=== PATIENT | female | born 1990 | race African-American/Black ===

== ENCOUNTER 2018-11-05 09:36 | Inpatient (IN) | payer OTHER ==
[2018-11-05] MEDS: ELECTROLYTE-148 SOLN 1,000 ML IV SCH (09:45)
[2018-11-05 10:43] VITALS: BMI 30.9
[2018-11-05] MEDS ORDERED: CITRIC ACID/SODIUM CITRATE 30 ML UNIT-DOSE CUP PO ONE (10:52)
--- NOTE | 2018-11-05 10:59 | HP ---
Past Medical History - Primary Care Physician PCP:: Scar Romeo - Admission Chief Complaint: 28yo P1 with at EGA 39w1d admitted for repeat C/S and BTL History of Present Illness: complicated by prior C/S Vaginal GBS (+) Rh negative History Source: Patient, Medical Record Limitations to Obtaining History: No Limitations - Past Medical History STIPPLER: No: Alzheimer's, CVA, Dementia, Migraine, Multiple Sclerosis, Peripheral Neuropathy, Parkinson's, Seizure, Syncope, TIA, Vertigo, Other Cardiovascular: No: AFIB, Aneurysm, Aortic Insufficiency, Aortic Stenosis, CAD, CHF, Deep Vein Thrombosis, HTN, Hyperlipdemia, [place], Mitral Insufficiency, Mitral Stenosis, Murmur, Pulmonary Hypertension, Other Pulmonary: No: Asthma, Bronchitis, Cancer, COPD, O2 Dependent, Pneumonia, Previously Intubated, Pulmonary Embolus, Pulmonary Fibrosis, Sleep Apnea, Other Gastrointestinal: No: Ascites, Cancer, Constipation, Crohn's Disease, Diverticulitis, Diverticulosis, Esophageal Varices, Gastritis, GERD, GI Bleed, Hemorrhoids, Hiatal Hernia, Inflamatory Bowel Disease, Irritable Bowel Disease, Pancreatitis, Peptic Ulcer Disease, Ulcerative Colitis, Other Hepatobiliary: No: Cirrhosis, Cholelithiasis, Cholecystitis, Choledocholithiasis , Hepatitis A, Hepatitis B, Hepatitis C, Other Renal/: No: Renal Failure, Renal Inusuff, BPH, Cancer, Hematuria, Hemodialysis , Neurogenic Bladder, Renal Calculi, UTI, Other ...: 3 ...Para: 1 ...Term: 1 ...: 0 ...Spon : 0 ...Induced : 1 ...Multiple Gestation: 0 ...LMP: 02/04/18 ... Weeks Gestation by Dates: 39.1 ...EDC by Dates: 11/11/18 ...EDC by Sono: 11/04/18 Heme/Onc: No: Anemia, B12 Deficiency, Bleeding Disorder, Cancer, Current Chemotherapy, Current Radiation Therapy, Hemochromatosis, Hypercoaguable State, Myeloproliferative Synd, Sickle Cell Disease, Sickle Cell Trait, Thrombocytopenia, Other Infectious Disease: No: AIDS, C-Diff, Herpes Zoster, HIV, MRSA, STD's, Tuberculosis, VREF, Other Psych: No: Addictions, Anxiety, Bipolar, Depression, Panic, Psychosis, Schizophrenia, Other Musculoskeletal: No: Bursitis, Chronic low back pain, Hemiparesis, Hemiplegia, Osteoarthritis, Paraplegia, Other Rheumatology: No: Fibromyalgia, Gout, Lupus, Rheumatoid Arthritis, Sarcoidosis, Vasculitis, Other ENT: No: Allergic Rhinitis, Sinusitis, Other Endocrine: No: Muldrow's Disease, Shantell's Disease, Diabetes Insipidus, Diabetes Mellitus, Hyperparathyroidism, Hyperthyroidism, Hypothyroidism, Osteopenia, SIADH, Other Dermatology: No: Basal Cell, Cellulitis, Eczema, Melanoma, Psoriasis, Squamous Cell, Other - Past Surgical History Past Surgical History: Yes: Hx Myomectomy: No Hx Transabdominal Cerclage: No - Smoking History Smoking history: Never smoked Have you smoked in the past 12 months: No - Alcohol/Substance Use Hx Alcohol Use: No History of Substance Use: reports: None - Social History Usual Living Arrangement: Yes: With Significant Other, With Child ADL: Independent History of Recent Travel: No Home Medications - Allergies Allergies/Adverse Reactions: Allergies Allergy/AdvReac Type Severity Reaction Status Date / Time No Known Allergies Allergy Verified 11/05/18 10:12 - Home Medications Home Medications: Ambulatory Orders Vitamins (Sjr) - 1 tab PO DAILY 11/05/18 Family Disease History - Family Disease History Family History: Denies Review of Systems - Review of Systems Constitutional: reports: No Symptoms Eyes: reports: No Symptoms HENT: reports: No Symptoms Neck: reports: No Symptoms Cardiovascular: reports: No Symptoms Respiratory: reports: No Symptoms Gastrointestinal: reports: No Symptoms Genitourinary: reports: No Symptoms Breasts: reports: No Symptoms Reported Musculoskeletal: reports: No Symptoms Integumentary: reports: No Symptoms Neurological: reports: No Symptoms Endocrine: reports: No Symptoms Hematology/Lymphatic: reports: No Symptoms Psychiatric: reports: No Symptoms Pain Intensity: 0 Physical Exam - Maternity Vital Signs: Vital Signs Temperature 98.5 F 11/05/18 10:33 Pulse Rate 88 11/05/18 10:33 Respiratory Rate 20 11/05/18 10:33 Blood Pressure 120/70 11/05/18 10:33 O2 Sat by Pulse Oximetry (%) Constitutional: Yes: Well Nourished, No Distress, Calm Eyes: Yes: WNL, Conjunctiva Clear, EOM Intact HENT: Yes: WNL, Atraumatic, Normocephalic Neck: Yes: WNL, Supple, Trachea Midline Cardiovascular: Yes: WNL, Regular Rate and Rhythm Lungs: Clear to auscultation, Normal air movement - Abdominal Exam/OB Fundal Height: 39 Number of Fetuses: Single Presentation: Vertex Contractions: Yes Regularity: Irritability Intensity: Unaware Monitor Mode: External Heart Rate (range): 140 Heart Rate Location: Midline Category: I Accelerations: Non-Uniform Decelerations: None - Vaginal Exam/OB Vaginal Bleediing: No Speculum Exam: No Presentation: Vertex/Position - Physical Exam Musculoskeletal: Yes: WNL Extremities: Yes: WNL Edema: Yes Edema: LLE: Trace, RLE: Trace Integumentary: Yes: WNL Deep Tendon Reflex Grade: Normal +2 ...Motor Strength: WNL Psychiatric: Yes: WNL, Alert, Oriented Hemorrhage Risk Assessment - Risk Factors Medium Risk Factors: Yes: Prior , uterine surgery,or multiple laparotomies High Risk Factors: Yes: None Risk Score: 1 Risk Level: Medium Risk Imaging - Results Ultrasound: Report Reviewed Assessment/Plan 28yo P1 with at EGA 39w1d admitted for repeat C/S and BTL. We discussed the risks and benefits of C/S and BTL at length, including but not limited to scarring, pain, bleeding, infection, injury to underlying organs and structures, need for additional surgery to repair/treat any problems or complications, complications/injuries, etc. We discussed the risks of after BTL and risks of ectopic . The pt verbalized her understanding and requested to proceed with surgery. The pt is aware that all surgeries have risks and no guarantees can be provided.
[2018-11-05] MEDS ORDERED: ELECTROLYTE-148 SOLN 1,000 ML IV SCH (11:00)
[2018-11-05] MEDS ORDERED: morphine SULFATE/Preservative Free 0.5 MG/ML (1cc Syringe) ONE (11:46)
[2018-11-05] MEDS ORDERED: BUPIVACAINE 0.75% IN DEXTROSE/PF 2ML AMPULE NR ONE (11:47)
[2018-11-05] MEDS ORDERED: ceFAZolin SODIUM 1 GM VIAL ONE (11:59)
[2018-11-05] MEDS ORDERED: OXYTOCIN 10 UNITS/ML VIAL ONE (12:17)
[2018-11-05] MEDS ORDERED: ONDANSETRON 4 MG/2 ML VIAL IVPUSH PRN (12:48)
[2018-11-05 12:56] LABS: ARTERIAL BLD GAS O2 SATURATION 6.3 % (90-98.9); ARTERIAL BLOOD GAS pH 7.25 (7.35-7.45)
[2018-11-05] MEDS ORDERED: SENNOSIDES/DOCUSATE COMBO (SENNA PLUS) TABLET (UD) PO PRN (12:58)
[2018-11-05] MEDS ORDERED: METHYLERGONOVINE MALEATE 0.2 MG/1 ML AMP IM PRN (12:58)
[2018-11-05] MEDS ORDERED: BENZOCAINE 20% 57 GM BOTTLE TP PRN (12:58)
[2018-11-05] MEDS ORDERED: oxyCODONE HCL 5 MG TABLET PO PRN ×2 (12:58)
[2018-11-05 13:01] LABS: ARTERIAL BLOOD GAS PCO2 64.8 mmHg (35-45); ARTERIAL BLOOD GAS PO2 8.6 mmHg (80-100)
[2018-11-05 13:02] LABS: VENOUS PC02 45.9 mmHg (38-52); VENOUS PH 7.33 (7.32-7.42); VENOUS PO2 27.8 mmHg (28-48)
[2018-11-05] MEDS: OXYTOCIN 20 UNITS in 0.9% NS 20 UNIT/1,000 ML INFUS.BAG IV SCH (13:15)
[2018-11-05] MEDS ORDERED: OXYTOCIN 20 UNITS in 0.9% NS 20 UNIT/1,000 ML INFUS.BAG IV ONE (13:21)
[2018-11-05] MEDS ORDERED: IBUPROFEN 800 MG/8 ML IJ IVPB ONE (13:59)
[2018-11-05] MEDS: IBUPROFEN 800 MG/8 ML IJ IVPB PRN (14:02)
[2018-11-05] MEDS: FERROUS SO4 325 MG TABLET (FP) PO SCH (22:53)
[2018-11-06] MEDS: IBUPROFEN 800 MG/8 ML IJ IVPB PRN (06:33)
--- NOTE | 2018-11-06 07:06 | PN ---
Post Progress Note - Subjective Subjective: 28yo P 2 now, no complains, + flatus, tolerating PO Post Day: 1 Type of Delivery: Repeat C/S Vital Signs: Vital Signs Temperature 98.0 F 11/06/18 06:00 Pulse Rate 96 H 11/06/18 06:00 Respiratory Rate 20 11/06/18 06:00 Blood Pressure 111/78 11/06/18 06:00 O2 Sat by Pulse Oximetry (%) 100 11/05/18 14:27 Breast Exam: Yes: Soft Uterus: Yes: Fundus Firm Incision: Yes: Dressing dry and intact Abdomen/GI: Yes: Abdomen soft, Passing flatus, Tolerating PO Lochia: Yes: Rubra Lochia, amount: Small Extremities: Yes: Calves non-tender Perineum: Yes: Intact Activity: Ambulating Assessment/Plan 28yo P2 POD # 1 c/p Repeat LST c/section VSS, Doing well elevated WBC, repeat CBC 11/07/18 Encourage ambulation cont. routine care
[2018-11-06 07:08] LABS: BASO % 0.5 % (0-2.0); EOS % 0.8 % (0-4.5); HEMATOCRIT 30.6 % (32.4-45.2); HEMOGLOBIN 9.7 GM/dL (10.7-15.3); LYMPH % 9.1 % (8-40); MCH 29.3 pg (25.7-33.7); MCHC 31.7 g/dl (32.0-36.0); MEAN CELL VOLUME 92.4 fl (80-96); MEAN PLT VOLUME 8.9 fl (7.5-11.1); MONO % 6.4 % (3.8-10.2); NEUT % 83.2 % (42.8-82.8); PLATELET COUNT 236 K/MM3 (134-434); RBC 3.31 M/mm3 (3.60-5.2); RDW 14.6 % (11.6-15.6); WHITE BLOOD COUNT 19.7 K/mm3 (4.0-10.0)
[2018-11-06] MEDS: PRENATAL VITAMINS W/ FOLIC ACID TABLET (FP) PO SCH (10:39)
[2018-11-06] MEDS: ENOXAPARIN NA (PORCINE) 30 MG/0.3 ML DISP.SYRIN SQ SCH (10:39)
[2018-11-06] MEDS: FERROUS SO4 325 MG TABLET (FP) PO SCH ×2 (10:40→22:51)
--- NOTE | 2018-11-06 11:03 | PN ---
Progress Note (short form) - Note Progress Note: Anesthesia postop note 28 y/o F s/p spinal anesthesia/duramorph for repeat section POD#1, vss, aaox3, pain well controlled, ambulated earlier No anesthesia complications.
[2018-11-06] MEDS ORDERED: BISACODYL 10 MG SUPP.RECT RC PRN (12:58)
[2018-11-06] MEDS: SIMETHICONE 80 MG TAB.CHEW (FP) PO PRN ×2 (13:19→20:21)
[2018-11-06] MEDS: IBUPROFEN 600 MG TABLET (FP) PO PRN ×2 (13:19→20:21)
[2018-11-06] MEDS: ACETAMINOPHEN 325 MG TABLET (FP) PO PRN ×2 (13:20→20:20)
[2018-11-06] MEDS: ELECTROLYTE-148 SOLN 1,000 ML IV SCH (16:31)
[2018-11-06] MEDS: OXYTOCIN 20 UNITS in 0.9% NS 20 UNIT/1,000 ML INFUS.BAG IV SCH (16:32)
--- NOTE | 2018-11-06 20:41 | OP ---
Operative Note - Note: Operative Date: 11/05/18 Pre-Operative Diagnosis: at EGA 39w1d. Prior C/S. Sterilization Operation: Repeat LT C/S, BTL Findings: Normal uterus, Fallopian tubes, ovaries. Post-Operative Diagnosis: Same as Pre-op Surgeon: Scar Romeo Configuration Engineer: Zoie Multani Anesthesiologist/DOG BEHAVIORIST: Gina Valentine Anesthesia: Spinal Specimens Removed: Placenta, fragments of b/l Fallopian tubes. Estimated Blood Loss (mls): 600 Drains & Tubes with Location: [place] cath Drains, Volume Out (mls): 100 Blood Volume Replaced (mls): 0 Operative Report Dictated: Yes
--- NOTE | 2018-11-06 20:42 | PN ---
Delivery - Delivery Section: Repeat, Low Flap Transverse Type of Anesthesia: Spinal Episiotomy/Laceration: None EBL (cc): 600 Delivery, Single - Stages of Labor Date of Delivery: 11/05/18 Time of Delivery: : Date Placenta Delivered: 11/05/18 Time Placenta Delivered: Placenta: Yes: Manual Removal, Normal Configuration - Condition of Pulp Grinder And Blender/Animal Humane Agent Supervisor Present: Yes Name: Julissa Obrien Infant Gender: Female Weight: 3.572 kg Total Hours ROM (Hrs/Mins): 0hrs 2min - 1 Minute Total Score: 9 5 Minutes Total Score: 9 - Feeding Plan Initial Plan: Exclusive throughout hospitalization Benefits of Exclusively reinforced: Yes
[2018-11-07 07:23] LABS: BASO % 0.4 % (0-2.0); EOS % 1.2 % (0-4.5); HEMATOCRIT 30.9 % (32.4-45.2); HEMOGLOBIN 9.9 GM/dL (10.7-15.3); LYMPH % 13.4 % (8-40); MCH 29.5 pg (25.7-33.7); MCHC 32.2 g/dl (32.0-36.0); MEAN CELL VOLUME 91.5 fl (80-96); MEAN PLT VOLUME 8.6 fl (7.5-11.1); MONO % 6.4 % (3.8-10.2); NEUT % 78.6 % (42.8-82.8); PLATELET COUNT 248 K/MM3 (134-434); RBC 3.37 M/mm3 (3.60-5.2); RDW 15.2 % (11.6-15.6); WHITE BLOOD COUNT 18.7 K/mm3 (4.0-10.0)
[2018-11-07] MEDS: ACETAMINOPHEN 325 MG TABLET (FP) PO PRN ×3 (09:10→20:53)
[2018-11-07] MEDS: PRENATAL VITAMINS W/ FOLIC ACID TABLET (FP) PO SCH (09:11)
[2018-11-07] MEDS: IBUPROFEN 600 MG TABLET (FP) PO PRN ×3 (09:11→20:53)
[2018-11-07] MEDS: ENOXAPARIN NA (PORCINE) 30 MG/0.3 ML DISP.SYRIN SQ SCH (09:12)
[2018-11-07] MEDS: FERROUS SO4 325 MG TABLET (FP) PO SCH ×2 (09:12→21:50)
--- NOTE | 2018-11-07 14:49 | PN ---
Post Progress Note - Subjective Subjective: Patient without acute complaints. Reports tolerating oral intake without nausea or vomiting. Ambulating without dizziness. Denies fevers or chills. Pain well controlled with oral pain medication. Passing flatus, no BM. Post Day: 2 Type of Delivery: Repeat C/S Vital Signs: Vital Signs Temperature 98.4 F 11/07/18 10:00 Pulse Rate 78 11/07/18 10:00 Respiratory Rate 20 11/07/18 10:00 Blood Pressure 114/66 11/07/18 10:00 O2 Sat by Pulse Oximetry (%) 100 11/05/18 14:27 Breast Exam: Yes: Soft Uterus: Yes: Fundus Firm, Fundus below umbilicus, Non-tender Incision: Yes: Sutures intact Abdomen/GI: Yes: Abdomen soft, Passing flatus, Tolerating PO Lochia: Yes: Rubra Lochia, amount: Small Extremities: Yes: Calves non-tender Perineum: Yes: Intact Activity: Ambulating - Labs Labs: CBC WBC 18.7 K/mm3 (4.0-10.0) H 11/07/18 06:30 RBC 3.37 M/mm3 (3.60-5.2) L 11/07/18 06:30 Hgb 9.9 GM/dL (10.7-15.3) L 11/07/18 06:30 Hct 30.9 % (32.4-45.2) L 11/07/18 06:30 MCV 91.5 fl (80-96) 11/07/18 06:30 MCH 29.5 pg (25.7-33.7) 11/07/18 06:30 MCHC 32.2 g/dl (32.0-36.0) 11/07/18 06:30 RDW 15.2 % (11.6-15.6) 11/07/18 06:30 Plt Count 248 K/MM3 (134-434) 11/07/18 06:30 MPV 8.6 fl (7.5-11.1) 11/07/18 06:30 Absolute Neuts (auto) 14.7 K/mm3 (1.5-8.0) H 11/07/18 06:30 Neutrophils % 78.6 % (42.8-82.8) 11/07/18 06:30 Lymphocytes % 13.4 % (8-40) D 11/07/18 06:30 Monocytes % 6.4 % (3.8-10.2) 11/07/18 06:30 Eosinophils % 1.2 % (0-4.5) 11/07/18 06:30 Basophils % 0.4 % (0-2.0) 11/07/18 06:30 Nucleated RBC % 0 % (0-0) 11/07/18 06:30 Assessment/Plan 28yo P2 s/p repeat LT C/S and BTL, doing well stable, afebrile. The pt is asymptomatic for s/sxs of anemia. care instructions reviewed. Continue routine postop care. Ambulation encouraged.
--- NOTE | 2018-11-07 14:52 | DS ---
Physical Exam-BAKERY ASSOCIATE Vital Signs: Vital Signs Temperature 98.4 F 11/07/18 10:00 Pulse Rate 78 11/07/18 10:00 Respiratory Rate 20 11/07/18 10:00 Blood Pressure 114/66 11/07/18 10:00 O2 Sat by Pulse Oximetry (%) 100 11/05/18 14:27 Constitutional: Yes: Well Nourished, No Distress, Calm Eyes: Yes: WNL, Conjunctiva Clear, EOM Intact HENT: Yes: WNL, Atraumatic, Normocephalic Neck: Yes: WNL, Supple, Trachea Midline Cardiovascular: Yes: WNL, Regular Rate and Rhythm Respiratory: Yes: WNL, Regular, CTA Bilaterally Gastrointestinal: Yes: WNL, Normal Bowel Sounds, Soft ...Rectal Exam: Yes: Deferred Renal/: Yes: WNL ....Post : Yes: Uterus firm, Uterus non-tender, Slight lochia rubra Breast(s): Yes: WNL Musculoskeletal: Yes: WNL Extremities: Yes: WNL Edema: Yes Edema: LLE: Trace, RLE: Trace Integumentary: Yes: WNL Wound/Incision: Yes: Clean/Dry, Well Approximated, Sutures Intact, Steri Strips , Open to air, Dressing Removed Neurological: Yes: WNL, Alert, Oriented ...Motor Strength: WNL Psychiatric: Yes: WNL, Alert, Oriented Labs: CBC, BMP 11/07/18 06:30 Delivery - Delivery Section: Repeat, Low Flap Transverse Type of Anesthesia: Spinal Episiotomy/Laceration: None EBL (cc): 600 Delivery, Single - Stages of Labor Date of Delivery: 11/05/18 Time of Delivery: 12:18 Time Placenta Delivered: 12:19 Placenta: Yes: Manual Removal, Normal Configuration - Condition of Head Start Director/Opening Machine Cleaner Present: Yes Name: Julissa Obrien Infant Gender: Female Weight: 3.572 kg Total Hours ROM (Hrs/Mins): 0hrs 2min - 1 Minute Total Score: 9 5 Minutes Total Score: 9 - [place] Feeding Plan Initial Plan: Exclusive throughout hospitalization Benefits of Exclusively reinforced: Yes Discharge Summary Reason For Visit: REPEAT at 39w, prior C/S, sterilization, anemia Procedures: Principal: Repeat LT C/S Other Procedures: BTL Hospital Course: Normal post op and course Condition: Good - Instructions Diet, Activity, Other Instructions: Physical activity Resume your normal everyday activity as tolerated no heavy lifting or exercise until seen by your surgeon. You may walk unlimited katherin of and climb stairs. You may resume driving the car when you feel safe and comfortable behind the wheel. No sexual activity as instructed. Wound care If you have a bandage, leave it on, and keep dry for 48-72 hours. After that time discard the outer bandage. If they are tapes on the skin under the out of bandage leave them in place. They will peel off in the next 7 to 10 days. Do Not Peel them off. You may shower the day after surgery. If there are tapes present on the skin, you may shower over them. Diet There are no dietary restrictions. Eat healthy, high-fiber foods. Drink 6 to 8 glasses of liquid each day. This will assist in keeping your bowels are regular. Pain management You may take Tylenol or acetaminophen or Ibuprofen (for example, Motrin, Advil etc.) from my pain prescription medication is ordered should be taken as prescribed for moderate to severe pain. Call MD for any of the following: Severe pain not relieved by medication Fever of 101 or higher Excessive bleeding or drainage on dressing Inability to urinate Referrals: Scar Romeo MD [Staff Physician] - Disposition: HOME - Home Medications Comprehensive Discharge Medication List: Ambulatory Orders Vitamins (Sjr) - 1 tab PO DAILY 11/05/18
[2018-11-08] MEDS: IBUPROFEN 600 MG TABLET (FP) PO PRN (05:52)
[2018-11-08] MEDS: ACETAMINOPHEN 325 MG TABLET (FP) PO PRN (05:52)
[2018-11-08 07:38] LABS: BASO % 0.2 % (0-2.0); EOS % 1.7 % (0-4.5); HEMOGLOBIN 9.6 GM/dL (10.7-15.3); MCHC 34.3 g/dl (32.0-36.0); MEAN CELL VOLUME 90.6 fl (80-96); MEAN PLT VOLUME 8.6 fl (7.5-11.1); MONO % 6.7 % (3.8-10.2); NEUT % 77.4 % (42.8-82.8); PLATELET COUNT 259 K/MM3 (134-434); RBC 3.09 M/mm3 (3.60-5.2); RDW 15.3 % (11.6-15.6)
--- NOTE | 2018-11-08 08:01 | PN ---
Post Progress Note - Subjective Subjective: Patient without acute complaints. Reports tolerating oral intake without nausea or vomiting. Ambulating without dizziness. Denies fevers or chills. Pain well controlled with oral pain medication. without difficulty. Passing flatus. Post Day: 3 Type of Delivery: Repeat C/S Vital Signs: Vital Signs Temperature 98.2 F 11/07/18 20:30 Pulse Rate 82 11/07/18 20:30 Respiratory Rate 18 11/07/18 20:30 Blood Pressure 126/77 11/07/18 20:30 O2 Sat by Pulse Oximetry (%) 100 11/05/18 14:27 Breast Exam: Yes: Soft Uterus: Yes: Fundus Firm, Fundus below umbilicus Incision: Yes: Sutures intact Abdomen/GI: Yes: Abdomen soft, Tender (mild incisional), Passing flatus, Tolerating PO. No: Abdominal Distention Lochia: Yes: Serosa Lochia, amount: Small Extremities: Yes: Calves non-tender, Edema (trace) Activity: Ambulating - Labs Labs: CBC WBC 13.0 K/mm3 (4.0-10.0) H 11/08/18 07:00 RBC 3.09 M/mm3 (3.60-5.2) L 11/08/18 07:00 Hgb 9.6 GM/dL (10.7-15.3) L 11/08/18 07:00 Hct 28.0 % (32.4-45.2) L 11/08/18 07:00 MCV 90.6 fl (80-96) 11/08/18 07:00 MCH 31.0 pg (25.7-33.7) 11/08/18 07:00 MCHC 34.3 g/dl (32.0-36.0) 11/08/18 07:00 RDW 15.3 % (11.6-15.6) 11/08/18 07:00 Plt Count 259 K/MM3 (134-434) 11/08/18 07:00 MPV 8.6 fl (7.5-11.1) 11/08/18 07:00 Absolute Neuts (auto) 10.1 K/mm3 (1.5-8.0) H 11/08/18 07:00 Neutrophils % 77.4 % (42.8-82.8) 11/08/18 07:00 Lymphocytes % 14.0 % (8-40) 11/08/18 07:00 Monocytes % 6.7 % (3.8-10.2) 11/08/18 07:00 Eosinophils % 1.7 % (0-4.5) 11/08/18 07:00 Basophils % 0.2 % (0-2.0) 11/08/18 07:00 Nucleated RBC % 0 % (0-0) 11/08/18 07:00 Assessment/Plan 28 yo POD # 3 s/p repeat CD, afebrile, mild asymptomatic anemia, doing well 1. Patient stable for discharge home today. 2. Patient encouraged to contact MD for: - Severe pain not controlled by oral pain medication - Fevers or chills - Nausea or vomiting, intolerance of oral intake - Incision redness, tenderness or discharge 3. Patient to follow up in office in 1-2 weeks for incision check, 4-6 weeks for visit
[2018-11-08] MEDS: ENOXAPARIN NA (PORCINE) 30 MG/0.3 ML DISP.SYRIN SQ SCH (09:38)
[2018-11-08] MEDS: PRENATAL VITAMINS W/ FOLIC ACID TABLET (FP) PO SCH (09:43)
[2018-11-08] MEDS: FERROUS SO4 325 MG TABLET (FP) PO SCH (09:43)
[2018-11-08 10:06] VITALS: BP 118/69; PULSE 83; TEMP 98.3
--- NOTE | 2018-11-14 18:42 | PATH ---
Surgical Pathology Report Patient Name: ANTHONY HERNANDEZ Med. Rec. #: [id number] /Age/Gender: 1990 (Age: 28) / F Account: [id number] Location: [facility] OBS/POSTAL SORTING OFFICER Taken: 11/05/2018 Received: 11/06/2018 Reported: 11/14/2018 Physicians: Scar Romeo M.D. Specimen(s) Received A: PLACENTA B: PORTION OF LEFT FALLOPIAN TUBE C: PORTION OF RIGHT FALLOPIAN TUBE Clinical History , x1 Final Diagnosis A. PLACENTA, SECTION: 449 G THIRD TRIMESTER PLACENTA WITH TRIVASCULAR UMBILICAL CORD AND UNREMARKABLE PLACENTAL MEMBRANES. B. FALLOPIAN TUBE, LEFT, PARTIAL EXCISION: FULL LUMINAL PORTION OF UNREMARKABLE FALLOPIAN TUBE. C. FALLOPIAN TUBE, RIGHT, PARTIAL EXCISION: FULL LUMINAL PORTION OF UNREMARKABLE FALLOPIAN TUBE. Electronically Signed Erika Ford M.D. Gross Description A. The specimen is received fresh labeled placenta and is a 449 gram, 19.0 x 15.0 x 2.4 cm. placenta with attached membranes and umbilical cord. The attached membranes are vera, translucent with focal opacities and insert marginally. The umbilical cord measures 9 cm. in length and averages 1.0 cm. in diameter. The cord inserts eccentrically, 3.5 cm. to the nearest margin. The Cut surface of the umbilical cord reveals 3 vessels. The surface is walters-blue with minimal fibrin deposition and appropriate caliber vessels. The maternal surface is red-brown with focal defects. Sectioning reveals red-brown, spongy parenchyma. No lesions are identified. Boom Boss sections are submitted in three cassettes as follows: 1- membrane rolls and umbilical cord; 2-3- full thickness sections of placenta. B. Received in formalin labeled "portion of left fallopian tube," is a 2.0 cm in length portion of fallopian tube. No fimbria are present. The outer surface is vera-reilly and smooth. Sectioning reveals an unremarkable lumen. Boom Boss sections are submitted in one cassette. C. Received in formalin labeled "portion of right fallopian tube," is a 2.0 cm in length portion of fallopian tube. No fimbria are present. The outer surface is vera-reilly and smooth. Sectioning reveals an unremarkable lumen. Boom Boss sections are submitted in one cassette. DL/11/13/2018 saudi11/13/2018
== END 2018-11-08 16:35 | disposition home or self-care (01) | DRG 785 ==
LOC: JLDR 09:36 → J3W 14:42
PROVIDERS: ADMIT Obstetrics & Gynecology; ATTEND Obstetrics & Gynecology
PROC: 10D00Z1 Extraction of Products of Conception, Low, Open Approach (ICD-10-PCS; principal; 2018-11-05)
PROC: 0UL70ZZ Occlusion of Bilateral Fallopian Tubes, Open Approach (ICD-10-PCS; 2018-11-05)
DX: O34.211 Maternal care for low transverse scar from previous cesarean delivery (principal); O99.824 Streptococcus B carrier state complicating childbirth; O34.29 Maternal care due to uterine scar from other previous surgery; Z3A.39 39 weeks gestation of pregnancy; Z37.0 Single live birth; Z30.2 Encounter for sterilization
CPT/HCPCS: 36415; 36600; 82803; 85025; 85461; 86900; 86999; 88302-TC; 88307-TC